=== PATIENT | female | born 1960 | race African-American/Black ===

== ENCOUNTER 2018-07-06 00:22 | Inpatient (IN) | payer MEDICAID, OTHER ==
[~2018-07-06] VITALS: Ht 175.3 cm; Wt 126.6 kg
[~2018-07-06 00:22] MED LIST: BENAZAPRIL; METFROMIN
[2018-07-06 01:17] LABS: BASOPHILS % 0.7 % (0.0-2.0); EOSINOPHILS % 2.3 % (0.0-5.0); HEMATOCRIT. 40.8 % (36.0-48.0); HEMOGLOBIN. 13.7 g/dL (12.0-16.0); LYMPHOCYTES % 41.7 % (20.0-50.0); MEAN CORPUSCULAR HEMOGLOBIN 32.2 pg (28.0-32.0); MEAN CORPUSCULAR VOLUME 95.6 fL (81.0-99.0); MEAN PLATELET VOLUME 9.2 fl (7.4-10.4); MONOCYTES % 6.6 % (2.0-8.0); NEUTROPHILS % 48.7 % (40.0-76.0); PLATELET 256 x1000/uL (130-400); RED BLOOD CELL COUNT 4.27 mill/uL (4.2-5.4)
[2018-07-06 01:18] LABS: CHLORIDE 100 mEq/L (98-107)
[2018-07-06 01:21] LABS: PROTHROMBIN TIME 9.7 sec (9.1-11.1)
[2018-07-06 01:37] LABS: ETHANOL BLOOD < 10 mg/dL; LDL CHOLESTEROL 96 mg/dL (5-100)
[2018-07-06] MEDS ORDERED: ASPIRIN 81MG TABLET PO ONE (02:00)
[2018-07-06 04:42] LABS: CLARITY URINE CLOUDY (CLEAR); COLOR URINE YELLOW (YELLOW); KETONES URINE NEGATIVE (NEGATIVE); LEUKOCYTE ESTERASE URINE TRACE (NEGATIVE); NITRITE URINE NEGATIVE (NEGATIVE); OCCULT BLOOD URINE NEGATIVE (NEGATIVE); PROTEIN URINE TRACE (NEGATIVE); SPECIFIC GRAVITY URINE 1.024 (1.005-1.030); UROBILINOGEN URINE 0.2 E.U./dL (0.2-1.0)
[2018-07-06 05:14] LABS: *AMPHETAMINES SCREEN URINE NEGATIVE (NEGATIVE); *BARBITURATES SCREEN URINE NEGATIVE (NEGATIVE); *BENZODIAZEPINES SCREEN URINE NEGATIVE (NEGATIVE); *COCAINE SCREEN URINE NEGATIVE (NEGATIVE); CANNABINOID URINE SCREEN NEGATIVE (NEGATIVE); METHADONE URINE SCREEN NEGATIVE (NEGATIVE); OPIATES URINE SCREEN NEGATIVE (NEGATIVE); PHENCYCLIDINE URINE SCREEN NEGATIVE (NEGATIVE)
[2018-07-06] MEDS ORDERED: ACETAMINOPHEN 325MG TABLET PO PRN (13:00)
[2018-07-06] MEDS ORDERED: ONDANSETRON HCL 4MG/2ML INJ IV PRN (13:00)
[2018-07-06] MEDS ORDERED: DEXTROSE 50% WATER 50ML SYRINGE IV PRN (13:00)
[2018-07-06] MEDS ORDERED: LOSARTAN POTASSIUM 50 MG TABLET PO SCH ×2 (13:10→18:30)
[2018-07-06 13:24] VITALS: BP 176/109
[2018-07-06] MEDS: CLOPIDOGREL 75MG TABLET PO SCH (13:59)
[2018-07-06] MEDS ORDERED: HYDR-4135 MT (14:45)
[2018-07-06] MEDS ORDERED: ASPI-1159 MT (14:45)
[2018-07-06] MEDS ORDERED: LOSA100T14 MT (14:45)
[2018-07-06] MEDS ORDERED: INSHUMSS SUBCUT (14:45)
[2018-07-06] MEDS ORDERED: METF500S7 PO (14:45)
[2018-07-06 16:30] VITALS: BP 185/108
[2018-07-06] MEDS: NICOTINE 21MG PATCH TD SCH (17:03)
[2018-07-06] MEDS: BLOOD SUGAR DIAGNOSTIC STRIP TEST SCH ×2 (17:03→21:12)
[2018-07-06] MEDS: INSULIN LISPRO 100 UNITS/ML SUBCUT SCH ×2 (17:04→21:12)
[2018-07-06 20:00] VITALS: BP 170/91
[2018-07-06] MEDS: METOPROLOL TARTRATE 50MG TABLET PO SCH (21:04)
[2018-07-06] MEDS: ATORVASTATIN CALCIUM 10MG TABLET PO SCH (21:04)
[2018-07-06] MEDS: ENOXAPARIN 40MG/0.4ML SYR SUBCUT SCH (21:05)
[2018-07-06] MEDS: INSULIN GLARGINE UD 100 UNITS/ML SYR SUBCUT SCH (21:12)
[2018-07-07] VITALS: BP 141/91
[2018-07-07 04:00] VITALS: BP 138/85
[2018-07-07] MEDS: INSULIN LISPRO 100 UNITS/ML SUBCUT SCH ×4 (06:19→20:53)
[2018-07-07] MEDS: BLOOD SUGAR DIAGNOSTIC STRIP TEST SCH ×4 (06:20→21:00)
[2018-07-07 06:45] LABS: BASOPHILS % 0.5 % (0.0-2.0); EOSINOPHILS % 3.3 % (0.0-5.0); HEMATOCRIT. 39.4 % (36.0-48.0); HEMOGLOBIN. 13.3 g/dL (12.0-16.0); LYMPHOCYTES % 39.4 % (20.0-50.0); MEAN CORPUSCULAR VOLUME 94.9 fL (81.0-99.0); MONOCYTES % 8.6 % (2.0-8.0); NEUTROPHILS % 48.2 % (40.0-76.0); PLATELET 273 x1000/uL (130-400); RED BLOOD CELL COUNT 4.16 mill/uL (4.2-5.4); RED CELL DISTRIBUTION WIDTH 13.2 % (11.6-14.6)
[2018-07-07] MEDS ORDERED: GLIPIZIDE 10MG TABLET PO SCH (07:10)
[2018-07-07 07:24] LABS: CHLORIDE 104 mEq/L (98-107)
[2018-07-07 08:29] VITALS: BP 136/87
[2018-07-07] MEDS: NICOTINE 21MG PATCH TD SCH ×2 (09:00→10:47)
[2018-07-07] MEDS: CLOPIDOGREL 75MG TABLET PO SCH (10:46)
[2018-07-07] MEDS: METOPROLOL TARTRATE 50MG TABLET PO SCH ×2 (10:46→20:53)
[2018-07-07] MEDS: LOSARTAN POTASSIUM 100 MG TABLET PO SCH (10:46)
[2018-07-07] MEDS: ENOXAPARIN 40MG/0.4ML SYR SUBCUT SCH ×2 (10:47→21:26)
[2018-07-07] MEDS: INSULIN GLARGINE UD 100 UNITS/ML SYR SUBCUT SCH ×2 (10:48→21:27)
[2018-07-07 12:00] VITALS: BP 174/105
[2018-07-07] MEDS: METRONIDAZOLE 500MG TABLET PO SCH (12:29)
[2018-07-07] MEDS: GLIPIZIDE 10MG TABLET PO SCH (16:58)
[2018-07-07 20:51] VITALS: BP 151/88
[2018-07-07] MEDS: ATORVASTATIN CALCIUM 10MG TABLET PO SCH (20:53)
[2018-07-08] VITALS: BP 145/79
[2018-07-08] MEDS: METRONIDAZOLE 500MG TABLET PO SCH ×3 (00:24→20:51)
[2018-07-08 04:00] VITALS: BP 146/81
[2018-07-08] MEDS: BLOOD SUGAR DIAGNOSTIC STRIP TEST SCH ×4 (05:47→20:53)
[2018-07-08] MEDS: INSULIN LISPRO 100 UNITS/ML SUBCUT SCH ×4 (06:02→20:53)
[2018-07-08] MEDS: GLIPIZIDE 10MG TABLET PO SCH ×2 (06:10→18:05)
[2018-07-08 07:01] LABS: CHLORIDE 104 mEq/L (98-107)
[2018-07-08 07:02] LABS: BASOPHILS % 0.2 % (0.0-2.0); EOSINOPHILS % 2.9 % (0.0-5.0); HEMATOCRIT. 38.2 % (36.0-48.0); HEMOGLOBIN. 12.8 g/dL (12.0-16.0); LYMPHOCYTES % 39.1 % (20.0-50.0); MEAN CORPUSCULAR HEMOGLOBIN 32.1 pg (28.0-32.0); MEAN CORPUSCULAR VOLUME 95.9 fL (81.0-99.0); MEAN PLATELET VOLUME 9.1 fl (7.4-10.4); MONOCYTES % 8.3 % (2.0-8.0); NEUTROPHILS % 49.5 % (40.0-76.0); PLATELET 267 x1000/uL (130-400); RED BLOOD CELL COUNT 3.98 mill/uL (4.2-5.4); RED CELL DISTRIBUTION WIDTH 13.1 % (11.6-14.6)
[2018-07-08 08:00] VITALS: BP 163/96
[2018-07-08] MEDS: METOPROLOL TARTRATE 50MG TABLET PO SCH ×2 (08:59→20:52)
[2018-07-08] MEDS: LOSARTAN POTASSIUM 100 MG TABLET PO SCH (08:59)
[2018-07-08] MEDS: CLOPIDOGREL 75MG TABLET PO SCH (08:59)
[2018-07-08] MEDS: NICOTINE 21MG PATCH TD SCH ×2 (09:00→09:03)
[2018-07-08] MEDS: ENOXAPARIN 40MG/0.4ML SYR SUBCUT SCH ×2 (09:02→20:52)
[2018-07-08] MEDS: INSULIN GLARGINE UD 100 UNITS/ML SYR SUBCUT SCH ×2 (10:58→21:17)
[2018-07-08 12:00] VITALS: BP 148/100
[2018-07-08 16:00] VITALS: BP 126/72
[2018-07-08 20:00] VITALS: BP 150/82
[2018-07-08] MEDS: ATORVASTATIN CALCIUM 10MG TABLET PO SCH (20:51)
[2018-07-09] VITALS: BP 143/78
[2018-07-09 04:00] VITALS: BP 158/85
[2018-07-09] MEDS: GLIPIZIDE 10MG TABLET PO SCH (06:14)
[2018-07-09] MEDS: INSULIN LISPRO 100 UNITS/ML SUBCUT SCH ×2 (06:14→13:46)
[2018-07-09] MEDS: BLOOD SUGAR DIAGNOSTIC STRIP TEST SCH ×2 (06:14→12:16)
[2018-07-09 08:00] VITALS: BP 152/65
[2018-07-09] MEDS: CLOPIDOGREL 75MG TABLET PO SCH (09:09)
[2018-07-09] MEDS: METOPROLOL TARTRATE 50MG TABLET PO SCH (09:09)
[2018-07-09] MEDS: ENOXAPARIN 40MG/0.4ML SYR SUBCUT SCH (09:09)
[2018-07-09] MEDS: METRONIDAZOLE 500MG TABLET PO SCH (09:09)
[2018-07-09] MEDS: LOSARTAN POTASSIUM 100 MG TABLET PO SCH (09:09)
[2018-07-09] MEDS: INSULIN GLARGINE UD 100 UNITS/ML SYR SUBCUT SCH (09:15)
[2018-07-09 11:12] VITALS: BP 152/65
[2018-07-09 12:37] VITALS: BP 148/83
[2018-07-09 16:42] VITALS: BP 151/73
== END 2018-07-09 17:52 | DRG 45 ==
LOC: ER 00:59 → 8WST 01:51 → ENRESERV 11:09
PROVIDERS: ADMIT Internal Medicine; ATTEND Internal Medicine
PROC: 4A00X4Z Measurement of Central Nervous Electrical Activity, External Approach (ICD-10-PCS; principal; 2018-07-07)
DX: I63.511 Cerebral infarction due to unspecified occlusion or stenosis of right middle cerebral artery (principal); E43 Unspecified severe protein-calorie malnutrition; E11.51 Type 2 diabetes mellitus with diabetic peripheral angiopathy without gangrene; E66.01 Morbid (severe) obesity due to excess calories; R13.10 Dysphagia, unspecified; E11.65 Type 2 diabetes mellitus with hyperglycemia; F17.210 Nicotine dependence, cigarettes, uncomplicated; G81.91 Hemiplegia, unspecified affecting right dominant side; R26.9 Unspecified abnormalities of gait and mobility; E78.5 Hyperlipidemia, unspecified; G81.94 Hemiplegia, unspecified affecting left nondominant side; R47.01 Aphasia; R47.1 Dysarthria and anarthria; E78.00 Pure hypercholesterolemia, unspecified; I11.9 Hypertensive heart disease without heart failure; Z79.84 Long term (current) use of oral hypoglycemic drugs; Z82.49 Family history of ischemic heart disease and other diseases of the circulatory system; Z68.41 Body mass index [BMI] 40.0-44.9, adult; Z83.3 Family history of diabetes mellitus; Z88.8 Allergy status to other drugs, medicaments and biological substances; Z71.6 Tobacco abuse counseling
CPT/HCPCS: 36415; 70551; 71045; 80048; 80061; 80305; 82962; 83036; 83721; 84443; 84484; 92523; 92610; 93005; 93306; 93880; 93970; 97112; 97162; 97166; 97530; 99291; G0482; J1650; J1815; J2405

== ENCOUNTER 2018-11-19 04:18 | Inpatient (IN) | payer MEDICAID ==
[~2018-11-19] VITALS: Ht 167.6 cm; Wt 127.9 kg
[~2018-11-19 04:18] MED LIST changes: +ASPI-1159 MT; -BENAZAPRIL; +HYDR-4135 MT; +INSHUMSS SUBCUT; +LOSA100T14 MT; +METF500S7 PO; -METFROMIN
[2018-11-19 05:13] LABS: BASOPHILS % 1.3 % (0.0-2.0); EOSINOPHILS % 3.7 % (0.0-5.0); HEMATOCRIT. 42.4 % (36.0-48.0); HEMOGLOBIN. 14.1 g/dL (12.0-16.0); LYMPHOCYTES % 34.8 % (20.0-50.0); MEAN CORPUSCULAR HEMOGLOBIN 30.8 pg (28.0-32.0); MEAN CORPUSCULAR VOLUME 92.9 fL (81.0-99.0); MEAN PLATELET VOLUME 8.6 fl (7.4-10.4); MONOCYTES % 6.4 % (2.0-8.0); NEUTROPHILS % 53.8 % (40.0-76.0); PLATELET 291 x1000/uL (130-400); RED BLOOD CELL COUNT 4.56 mill/uL (4.2-5.4); RED CELL DISTRIBUTION WIDTH 14.1 % (11.6-14.6)
[2018-11-19 05:17] LABS: CHLORIDE 97 mEq/L (98-107)
[2018-11-19 05:20] LABS: PARTIAL THROMBOPLASTIN TIME 27.1 sec (23.4-31.0); PROTHROMBIN TIME 9.9 sec (9.1-11.1)
[2018-11-19] MEDS ORDERED: ENALAPRIL 2.5MG/2ML VIAL 2ML IV ONE (06:30)
[2018-11-19] MEDS ORDERED: MAGNESIUM 1 G PREMIX 100 ML IV ONE (07:00)
[2018-11-19] MEDS ORDERED: INSULIN REGULAR (HUMULIN R) 300UNITS/3ML IV ONE (07:00)
[2018-11-19] MEDS ORDERED: ASPIRIN 81MG TABLET PO ONE (07:00)
[2018-11-19] MEDS ORDERED: FUROSEMIDE 20MG/2ML VIAL IVP ONE (07:00)
[2018-11-19] MEDS ORDERED: ONDANSETRON HCL 4MG/2ML INJ IV PRN (14:45)
[2018-11-19] MEDS ORDERED: LORAZEPAM 0.5MG TABLET PO PRN (14:45)
[2018-11-19] MEDS ORDERED: ACETAMINOPHEN 325MG TABLET PO PRN (14:45)
[2018-11-19] MEDS ORDERED: LABETALOL 5MG/ML SYR 20 MG/4 ML SYRINGE IV NR (14:45)
[2018-11-19] MEDS ORDERED: HYDROCODONE/ACETAMINOPHEN 5/325MG TABLET PO PRN (14:45)
[2018-11-19] MEDS ORDERED: IPRATROPIUM/ALBUTEROL 0.5-3(2.5)MG/3ML NEB INH PRN (14:45)
[2018-11-19 17:30] LABS: BETA HYDROXYBUTYRATE 0.2 mMol/L (0.0-0.3)
[2018-11-19] MEDS ORDERED: LOSARTAN POTASSIUM 50 MG TABLET PO NR (18:15)
[2018-11-19 22:00] VITALS: BP 152/93
[2018-11-19] MEDS ORDERED: DEXTROSE 50% WATER 50ML SYRINGE IV PRN ×2 (23:15)
[2018-11-19] MEDS ORDERED: BLOOD SUGAR DIAGNOSTIC STRIP TEST SCH (23:30)
[2018-11-19] MEDS: LOSARTAN POTASSIUM 50 MG TABLET PO SCH (23:35)
[2018-11-19] MEDS: HYDRALAZINE HCL 50MG TABLET PO SCH (23:35)
[2018-11-20] VITALS (11 sets, daily range): BP systolic 128–174; BP diastolic 71–96
[2018-11-20] MEDS: INSULIN GLARGINE UD 100 UNITS/ML SYR SUBCUT SCH ×2 (00:35→09:09)
[2018-11-20] MEDS ORDERED: INSULIN LISPRO 100 UNITS/ML SUBCUT SCH (01:13)
[2018-11-20] MEDS ORDERED: DEXTROSE 50% WATER 50ML SYRINGE IV PRN (05:30)
[2018-11-20] MEDS: HYDRALAZINE HCL 50MG TABLET PO SCH ×3 (06:14→21:11)
[2018-11-20] MEDS: BLOOD SUGAR DIAGNOSTIC STRIP TEST SCH ×4 (06:15→20:43)
[2018-11-20 06:41] LABS: BASOPHILS % 0.7 % (0.0-2.0); EOSINOPHILS % 3.3 % (0.0-5.0); HEMATOCRIT. 39.6 % (36.0-48.0); LYMPHOCYTES % 31.5 % (20.0-50.0); MEAN CORPUSCULAR HEMOGLOBIN 30.6 pg (28.0-32.0); MEAN CORPUSCULAR VOLUME 92.8 fL (81.0-99.0); MEAN PLATELET VOLUME 8.6 fl (7.4-10.4); MONOCYTES % 8.1 % (2.0-8.0); NEUTROPHILS % 56.4 % (40.0-76.0); PLATELET 303 x1000/uL (130-400); RED BLOOD CELL COUNT 4.26 mill/uL (4.2-5.4); RED CELL DISTRIBUTION WIDTH 14.2 % (11.6-14.6)
[2018-11-20 07:02] LABS: CHLORIDE 101 mEq/L (98-107)
[2018-11-20] MEDS: INSULIN LISPRO 100 UNITS/ML SUBCUT SCH ×4 (07:20→21:18)
[2018-11-20] MEDS: LOSARTAN POTASSIUM 50 MG TABLET PO SCH ×2 (09:08→21:09)
[2018-11-20] MEDS: ASPIRIN 81MG TABLET PO SCH (09:09)
[2018-11-20] MEDS: DILTIAZEM HCL 30MG TABLET PO SCH ×3 (12:00→23:26)
[2018-11-20] MEDS: NYSTATIN POWDER 15GM TOP SCH (18:23)
[2018-11-20] MEDS: ATORVASTATIN CALCIUM 40MG TABLET PO SCH (21:00)
[2018-11-20] MEDS ORDERED: ATORVASTATIN CALCIUM 40MG TABLET PO SCH (21:00)
[2018-11-20] MEDS ORDERED: INSULIN GLARGINE UD 100 UNITS/ML SYR SUBCUT SCH (22:00)
[2018-11-21] VITALS (12 sets, daily range): BP systolic 136–182; BP diastolic 78–113
[2018-11-21] MEDS: HYDRALAZINE HCL 50MG TABLET PO SCH ×3 (05:14→21:43)
[2018-11-21] MEDS: DILTIAZEM HCL 30MG TABLET PO SCH (05:14)
[2018-11-21] MEDS: BLOOD SUGAR DIAGNOSTIC STRIP TEST SCH ×4 (06:34→20:10)
[2018-11-21 06:44] LABS: BASOPHILS % 0.5 % (0.0-2.0); EOSINOPHILS % 3.6 % (0.0-5.0); HEMATOCRIT. 37.5 % (36.0-48.0); HEMOGLOBIN. 12.4 g/dL (12.0-16.0); LYMPHOCYTES % 36.1 % (20.0-50.0); MEAN CORPUSCULAR HEMOGLOBIN 30.7 pg (28.0-32.0); MEAN CORPUSCULAR VOLUME 93.2 fL (81.0-99.0); MEAN PLATELET VOLUME 8.5 fl (7.4-10.4); MONOCYTES % 7.2 % (2.0-8.0); NEUTROPHILS % 52.6 % (40.0-76.0); PLATELET 281 x1000/uL (130-400); RED BLOOD CELL COUNT 4.03 mill/uL (4.2-5.4); RED CELL DISTRIBUTION WIDTH 14.4 % (11.6-14.6)
[2018-11-21] MEDS: INSULIN LISPRO 100 UNITS/ML SUBCUT SCH ×6 (07:20→20:18)
[2018-11-21] MEDS: LOSARTAN POTASSIUM 50 MG TABLET PO SCH ×2 (08:50→20:15)
[2018-11-21] MEDS: ASPIRIN 81MG TABLET PO SCH (08:50)
[2018-11-21] MEDS: DOCUSATE SODIUM 100MG CAPSULE PO PRN (08:57)
[2018-11-21] MEDS: NYSTATIN POWDER 15GM TOP SCH ×3 (08:57→17:34)
[2018-11-21 09:04] LABS: CHLORIDE 103 mEq/L (98-107)
[2018-11-21] MEDS: INSULIN GLARGINE UD 100 UNITS/ML SYR SUBCUT SCH ×2 (10:33→21:45)
[2018-11-21] MEDS: DILTIAZEM HCL 60MG TABLET PO SCH ×2 (12:29→17:31)
[2018-11-21] MEDS: ATORVASTATIN CALCIUM 40MG TABLET PO SCH (20:18)
[2018-11-22] VITALS (11 sets, daily range): BP systolic 133–167; BP diastolic 73–99
[2018-11-22] MEDS: DILTIAZEM HCL 60MG TABLET PO SCH ×2 (00:15→06:02)
[2018-11-22] MEDS: HYDRALAZINE HCL 50MG TABLET PO SCH ×2 (06:02→14:30)
[2018-11-22] MEDS: BLOOD SUGAR DIAGNOSTIC STRIP TEST SCH ×4 (07:03→20:14)
[2018-11-22 07:05] LABS: BASOPHILS % 0.6 % (0.0-2.0); EOSINOPHILS % 4.1 % (0.0-5.0); HEMATOCRIT. 37.7 % (36.0-48.0); HEMOGLOBIN. 12.4 g/dL (12.0-16.0); LYMPHOCYTES % 37.7 % (20.0-50.0); MEAN CORPUSCULAR HEMOGLOBIN 30.8 pg (28.0-32.0); MEAN CORPUSCULAR VOLUME 93.7 fL (81.0-99.0); MEAN PLATELET VOLUME 8.7 fl (7.4-10.4); MONOCYTES % 6.7 % (2.0-8.0); NEUTROPHILS % 50.9 % (40.0-76.0); PLATELET 283 x1000/uL (130-400); RED BLOOD CELL COUNT 4.02 mill/uL (4.2-5.4); RED CELL DISTRIBUTION WIDTH 14.4 % (11.6-14.6)
[2018-11-22 08:33] LABS: CHLORIDE 105 mEq/L (98-107)
[2018-11-22] MEDS: ASPIRIN 81MG TABLET PO SCH (08:54)
[2018-11-22] MEDS: DOCUSATE SODIUM 100MG CAPSULE PO PRN (08:54)
[2018-11-22] MEDS: LOSARTAN POTASSIUM 50 MG TABLET PO SCH ×2 (08:55→20:25)
[2018-11-22] MEDS: INSULIN LISPRO 100 UNITS/ML SUBCUT SCH ×6 (08:58→20:22)
[2018-11-22] MEDS: INSULIN GLARGINE UD 100 UNITS/ML SYR SUBCUT SCH ×2 (10:49→22:51)
[2018-11-22] MEDS: NYSTATIN POWDER 15GM TOP SCH (13:00)
[2018-11-22] MEDS: DILTIAZEM HCL 90MG TABLET PO SCH ×2 (13:45→18:23)
[2018-11-22] MEDS: ATORVASTATIN CALCIUM 40MG TABLET PO SCH (20:24)
[2018-11-22] MEDS: HYDRALAZINE HCL 100MG TABLET PO SCH (22:49)
[2018-11-23] VITALS (20 sets, daily range): BP systolic 119–167; BP diastolic 65–97
[2018-11-23] MEDS: DILTIAZEM HCL 90MG TABLET PO SCH ×4 (00:09→17:34)
[2018-11-23] MEDS: HYDRALAZINE HCL 100MG TABLET PO SCH ×3 (06:29→22:05)
[2018-11-23 06:36] LABS: BASOPHILS % 0.7 % (0.0-2.0); EOSINOPHILS % 4.2 % (0.0-5.0); HEMATOCRIT. 36.6 % (36.0-48.0); HEMOGLOBIN. 12.1 g/dL (12.0-16.0); LYMPHOCYTES % 35.7 % (20.0-50.0); MEAN CORPUSCULAR HEMOGLOBIN 30.9 pg (28.0-32.0); MEAN CORPUSCULAR VOLUME 93.5 fL (81.0-99.0); MEAN PLATELET VOLUME 8.3 fl (7.4-10.4); MONOCYTES % 6.5 % (2.0-8.0); NEUTROPHILS % 52.9 % (40.0-76.0); PLATELET 279 x1000/uL (130-400); RED BLOOD CELL COUNT 3.91 mill/uL (4.2-5.4); RED CELL DISTRIBUTION WIDTH 14.1 % (11.6-14.6)
[2018-11-23] MEDS: BLOOD SUGAR DIAGNOSTIC STRIP TEST SCH ×4 (06:50→20:29)
[2018-11-23 07:13] LABS: CHLORIDE 105 mEq/L (98-107)
[2018-11-23] MEDS: INSULIN LISPRO 100 UNITS/ML SUBCUT SCH ×7 (07:58→22:06)
[2018-11-23] MEDS: ASPIRIN 81MG TABLET PO SCH (08:14)
[2018-11-23] MEDS: LOSARTAN POTASSIUM 50 MG TABLET PO SCH ×2 (08:14→20:28)
[2018-11-23] MEDS: NYSTATIN POWDER 15GM TOP SCH ×3 (08:16→17:32)
[2018-11-23] MEDS: INSULIN GLARGINE UD 100 UNITS/ML SYR SUBCUT SCH ×2 (11:56→22:07)
[2018-11-23] MEDS: DOCUSATE SODIUM 100MG CAPSULE PO PRN (17:34)
[2018-11-23] MEDS: ATORVASTATIN CALCIUM 40MG TABLET PO SCH (20:29)
[2018-11-23] MEDS: NYSTATIN 100,000 UNITS/GM CREAM 15GM TOP SCH (20:32)
[2018-11-24] VITALS (22 sets, daily range): BP systolic 116–166; BP diastolic 38–98
[2018-11-24] MEDS: DILTIAZEM HCL 90MG TABLET PO SCH ×4 (00:55→17:27)
[2018-11-24] MEDS: HYDRALAZINE HCL 100MG TABLET PO SCH ×3 (06:34→20:59)
[2018-11-24] MEDS: BLOOD SUGAR DIAGNOSTIC STRIP TEST SCH ×4 (06:59→21:26)
[2018-11-24 07:03] LABS: BASOPHILS % 0.4 % (0.0-2.0); EOSINOPHILS % 3.5 % (0.0-5.0); HEMATOCRIT. 36.2 % (36.0-48.0); HEMOGLOBIN. 11.9 g/dL (12.0-16.0); LYMPHOCYTES % 35.6 % (20.0-50.0); MEAN CORPUSCULAR HEMOGLOBIN 30.9 pg (28.0-32.0); MEAN CORPUSCULAR VOLUME 93.8 fL (81.0-99.0); MEAN PLATELET VOLUME 8.7 fl (7.4-10.4); MONOCYTES % 6.9 % (2.0-8.0); NEUTROPHILS % 53.6 % (40.0-76.0); PLATELET 295 x1000/uL (130-400); RED BLOOD CELL COUNT 3.86 mill/uL (4.2-5.4); RED CELL DISTRIBUTION WIDTH 14.3 % (11.6-14.6)
[2018-11-24 07:13] LABS: CHLORIDE 107 mEq/L (98-107)
[2018-11-24] MEDS: INSULIN LISPRO 100 UNITS/ML SUBCUT SCH ×7 (07:23→21:00)
[2018-11-24] MEDS: ASPIRIN 81MG TABLET PO SCH (07:27)
[2018-11-24] MEDS: LOSARTAN POTASSIUM 50 MG TABLET PO SCH ×2 (07:27→20:59)
[2018-11-24] MEDS: NYSTATIN POWDER 15GM TOP SCH ×3 (11:21→17:29)
[2018-11-24] MEDS: NYSTATIN 100,000 UNITS/GM CREAM 15GM TOP SCH ×2 (11:22→21:26)
[2018-11-24] MEDS: INSULIN GLARGINE UD 100 UNITS/ML SYR SUBCUT SCH ×2 (11:23→21:28)
[2018-11-24] MEDS: ATORVASTATIN CALCIUM 40MG TABLET PO SCH (21:00)
[2018-11-25] VITALS (14 sets, daily range): BP systolic 148–179; BP diastolic 54–99
[2018-11-25] MEDS: DILTIAZEM HCL 90MG TABLET PO SCH ×3 (06:41→11:09)
[2018-11-25] MEDS: BLOOD SUGAR DIAGNOSTIC STRIP TEST SCH ×2 (06:43→11:03)
[2018-11-25] MEDS: INSULIN LISPRO 100 UNITS/ML SUBCUT SCH ×4 (06:43→11:07)
[2018-11-25] MEDS: HYDRALAZINE HCL 100MG TABLET PO SCH ×2 (06:43→14:10)
[2018-11-25] MEDS: ASPIRIN 81MG TABLET PO SCH (08:18)
[2018-11-25] MEDS: LOSARTAN POTASSIUM 50 MG TABLET PO SCH (08:18)
[2018-11-25] MEDS: NYSTATIN POWDER 15GM TOP SCH ×2 (08:19→14:10)
[2018-11-25] MEDS: NYSTATIN 100,000 UNITS/GM CREAM 15GM TOP SCH (08:19)
[2018-11-25] MEDS: INSULIN GLARGINE UD 100 UNITS/ML SYR SUBCUT SCH (11:09)
== END 2018-11-25 14:41 | DRG 199 ==
LOC: ER 04:18 → 3WST 06:41 → EDBEDREQ 06:42 → CANRESERV 07:46 → ENRESERV 07:46 → EDBEDREQSVC 08:14 → ENRESERV 20:35
PROVIDERS: ADMIT Internal Medicine; ATTEND Internal Medicine
DX: I16.0 Hypertensive urgency (principal); E43 Unspecified severe protein-calorie malnutrition; E11.65 Type 2 diabetes mellitus with hyperglycemia; J44.9 Chronic obstructive pulmonary disease, unspecified; E78.5 Hyperlipidemia, unspecified; F17.200 Nicotine dependence, unspecified, uncomplicated; E78.00 Pure hypercholesterolemia, unspecified; E66.01 Morbid (severe) obesity due to excess calories; I10 Essential (primary) hypertension; R32 Unspecified urinary incontinence; Z74.01 Bed confinement status; Z88.9 Allergy status to unspecified drugs, medicaments and biological substances; I69.351 Hemiplegia and hemiparesis following cerebral infarction affecting right dominant side; I69.354 Hemiplegia and hemiparesis following cerebral infarction affecting left non-dominant side; Z68.42 Body mass index [BMI] 45.0-49.9, adult; Z79.84 Long term (current) use of oral hypoglycemic drugs
CPT/HCPCS: 36415; 70551; 71045; 80048; 80061; 82010; 82962; 83036; 83735; 83880; 84100; 84134; 84443; 84484; 93005; 93306; 93971; 96365; 96375; 97110; 97112; 97163; 97166; 97530; 99291; A6261; J1815; J1940; J3475; J3490; J7050

== ENCOUNTER 2019-03-16 04:15 | Inpatient (IN) | payer MEDICAID ==
[~2019-03-16] VITALS: Ht 177.8 cm; Wt 127.3 kg
[~2019-03-16 04:15] MED LIST changes: -ASPI-1159 MT; +ASPI-1393 MT; -LOSA100T14 MT; +LOSA100T32 MT
[2019-03-16] MEDS ORDERED: SODIUM CHLORIDE 0.9% 1,000 ML IV ONE (04:39)
[2019-03-16 05:13] LABS: CLARITY URINE TURBID (CLEAR); COLOR URINE YELLOW (YELLOW); KETONES URINE TRACE (NEGATIVE); LEUKOCYTE ESTERASE URINE 3+ (NEGATIVE); NITRITE URINE NEGATIVE (NEGATIVE); OCCULT BLOOD URINE TRACE (NEGATIVE); PH URINE 5.5 (4.5-8.0); PROTEIN URINE 2+ (NEGATIVE); SPECIFIC GRAVITY URINE 1.018 (1.005-1.030); UROBILINOGEN URINE 0.2 E.U./dL (0.2-1.0)
[2019-03-16 05:20] LABS: BASOPHILS % 0.2 % (0.0-2.0); EOSINOPHILS % 0.4 % (0.0-5.0); HEMATOCRIT. 44.5 % (36.0-48.0); HEMOGLOBIN. 14.8 g/dL (12.0-16.0); LYMPHOCYTES % 17.3 % (20.0-50.0); MEAN CORPUSCULAR HEMOGLOBIN 31.2 pg (28.0-32.0); MEAN CORPUSCULAR VOLUME 93.7 fL (81.0-99.0); MEAN PLATELET VOLUME 7.7 fl (7.4-10.4); NEUTROPHILS % 76.1 % (40.0-76.0); PLATELET 297 x1000/uL (130-400); RED BLOOD CELL COUNT 4.75 mill/uL (4.2-5.4); RED CELL DISTRIBUTION WIDTH 13.8 % (11.6-14.6)
[2019-03-16 05:24] LABS: CHLORIDE 107 mEq/L (98-107)
[2019-03-16 05:28] LABS: ETHANOL BLOOD < 10 mg/dL
[2019-03-16 05:31] LABS: *AMPHETAMINES SCREEN URINE NEGATIVE (NEGATIVE); *BARBITURATES SCREEN URINE NEGATIVE (NEGATIVE); *BENZODIAZEPINES SCREEN URINE NEGATIVE (NEGATIVE); *COCAINE SCREEN URINE NEGATIVE (NEGATIVE); METHADONE URINE SCREEN NEGATIVE (NEGATIVE); OPIATES URINE SCREEN NEGATIVE (NEGATIVE)
[2019-03-16 05:32] LABS: CANNABINOID URINE SCREEN NEGATIVE (NEGATIVE); PHENCYCLIDINE URINE SCREEN NEGATIVE (NEGATIVE)
[2019-03-16] MEDS ORDERED: CEFTRIAXONE 1 G PREMIX 50 ML IV ONE (05:45)
[2019-03-16 09:50] VITALS: BP 143/93
[2019-03-16 10:00] VITALS: BP 160/93
[2019-03-16] MEDS ORDERED: ONDANSETRON HCL 4MG/2ML INJ IV PRN (11:00)
[2019-03-16] MEDS ORDERED: ACETAMINOPHEN 325MG TABLET PO PRN (11:00)
[2019-03-16] MEDS ORDERED: DEXTROSE 50% WATER 50ML SYRINGE IV PRN (11:00)
[2019-03-16 12:00] VITALS: BP 144/91
[2019-03-16] MEDS: BLOOD SUGAR DIAGNOSTIC STRIP TEST SCH ×3 (12:20→20:55)
[2019-03-16] MEDS: INSULIN LISPRO 100 UNITS/ML SUBCUT SCH ×3 (12:50→20:53)
[2019-03-16] MEDS: SODIUM CHLORIDE 0.9% 1,000 ML IV SCH (13:28)
[2019-03-16] MEDS: ENOXAPARIN 30MG/0.3ML SYR SUBCUT SCH ×2 (13:30→20:55)
[2019-03-16 16:08] VITALS: BP 142/84
[2019-03-16] MEDS: CLOPIDOGREL 75MG TABLET PO SCH (16:20)
[2019-03-16 20:00] VITALS: BP 150/89
[2019-03-16] MEDS: ATORVASTATIN CALCIUM 40MG TABLET PO SCH (20:55)
[2019-03-17] VITALS: BP 171/94
[2019-03-17] MEDS: SODIUM CHLORIDE 0.9% 1,000 ML IV SCH ×3 (01:39→21:00)
[2019-03-17 04:00] VITALS: BP 167/89
[2019-03-17] MEDS: CEFTRIAXONE 1 G PREMIX 50 ML IV SCH (05:17)
[2019-03-17] MEDS: HYDRALAZINE 20MG/ML VIAL IV PRN (05:18)
[2019-03-17 06:47] LABS: BASOPHILS % 0.1 % (0.0-2.0); EOSINOPHILS % 4.7 % (0.0-5.0); HEMATOCRIT. 38.3 % (36.0-48.0); HEMOGLOBIN. 12.6 g/dL (12.0-16.0); LYMPHOCYTES % 35.6 % (20.0-50.0); MEAN CORPUSCULAR HEMOGLOBIN 31.2 pg (28.0-32.0); MEAN CORPUSCULAR VOLUME 94.7 fL (81.0-99.0); MONOCYTES % 5.6 % (2.0-8.0); PLATELET 282 x1000/uL (130-400); RED BLOOD CELL COUNT 4.05 mill/uL (4.2-5.4)
[2019-03-17] MEDS: BLOOD SUGAR DIAGNOSTIC STRIP TEST SCH ×4 (06:47→20:46)
[2019-03-17 06:57] LABS: CHLORIDE 111 mEq/L (98-107)
[2019-03-17] MEDS: INSULIN LISPRO 100 UNITS/ML SUBCUT SCH ×4 (08:12→20:46)
[2019-03-17] MEDS: ENOXAPARIN 30MG/0.3ML SYR SUBCUT SCH ×2 (08:13→20:34)
[2019-03-17] MEDS: CLOPIDOGREL 75MG TABLET PO SCH (08:13)
[2019-03-17 08:25] VITALS: BP 181/87
[2019-03-17 11:49] VITALS: BP 160/90
[2019-03-17] MEDS: LOSARTAN POTASSIUM 100 MG TABLET PO SCH (12:10)
[2019-03-17 16:06] VITALS: BP 160/93
[2019-03-17 20:00] VITALS: BP 150/88
[2019-03-17] MEDS: ATORVASTATIN CALCIUM 40MG TABLET PO SCH ×2 (20:33→21:00)
[2019-03-18] VITALS: BP 152/90
[2019-03-18 04:00] VITALS: BP 185/96
[2019-03-18] MEDS: HYDRALAZINE 20MG/ML VIAL IV PRN (05:23)
[2019-03-18] MEDS: CEFTRIAXONE 1 G PREMIX 50 ML IV SCH (05:24)
[2019-03-18] MEDS: BLOOD SUGAR DIAGNOSTIC STRIP TEST SCH ×4 (06:32→21:00)
[2019-03-18] MEDS: INSULIN LISPRO 100 UNITS/ML SUBCUT SCH ×4 (06:34→21:00)
[2019-03-18 08:33] VITALS: BP 157/85
[2019-03-18] MEDS: CLOPIDOGREL 75MG TABLET PO SCH (08:35)
[2019-03-18] MEDS: LOSARTAN POTASSIUM 100 MG TABLET PO SCH (08:35)
[2019-03-18] MEDS: ENOXAPARIN 30MG/0.3ML SYR SUBCUT SCH ×2 (08:38→22:26)
[2019-03-18] MEDS: SODIUM CHLORIDE 0.9% 1,000 ML IV SCH (12:05)
[2019-03-18 12:23] VITALS: BP 163/80
[2019-03-18 15:57] VITALS: BP 178/97
[2019-03-18] MEDS: HYDRALAZINE HCL 50MG TABLET PO SCH (22:26)
[2019-03-18] MEDS: ATORVASTATIN CALCIUM 40MG TABLET PO SCH (22:26)
[2019-03-19 00:17] VITALS: BP 179/98
[2019-03-19 04:00] VITALS: BP 196/100
[2019-03-19] MEDS: CEFTRIAXONE 1 G PREMIX 50 ML IV SCH (05:26)
[2019-03-19] MEDS: INSULIN LISPRO 100 UNITS/ML SUBCUT SCH ×4 (05:54→20:53)
[2019-03-19] MEDS: BLOOD SUGAR DIAGNOSTIC STRIP TEST SCH ×4 (05:54→20:54)
[2019-03-19] MEDS: SODIUM CHLORIDE 0.9% 1,000 ML IV SCH ×2 (05:55→17:29)
[2019-03-19] MEDS: CLOPIDOGREL 75MG TABLET PO SCH (08:19)
[2019-03-19] MEDS: LOSARTAN POTASSIUM 100 MG TABLET PO SCH (08:19)
[2019-03-19] MEDS: ENOXAPARIN 30MG/0.3ML SYR SUBCUT SCH ×2 (08:20→20:53)
[2019-03-19] MEDS: HYDRALAZINE HCL 50MG TABLET PO SCH (08:20)
[2019-03-19 12:31] VITALS: BP 169/84
[2019-03-19 16:04] VITALS: BP 167/88
[2019-03-19] MEDS: HYDRALAZINE HCL 100MG TABLET PO SCH (17:22)
[2019-03-19 20:22] VITALS: BP 178/94
[2019-03-19] MEDS: HYDRALAZINE 20MG/ML VIAL IV PRN (20:52)
[2019-03-19] MEDS: ATORVASTATIN CALCIUM 40MG TABLET PO SCH (20:53)
[2019-03-19] MEDS: MINOXIDIL 2.5MG TABLET PO SCH (20:53)
[2019-03-20] VITALS (7 sets, daily range): BP systolic 123–183; BP diastolic 69–99
[2019-03-20] MEDS: HYDRALAZINE 20MG/ML VIAL IV PRN (05:27)
[2019-03-20] MEDS: CEFTRIAXONE 1 G PREMIX 50 ML IV SCH (05:28)
[2019-03-20] MEDS: HYDRALAZINE HCL 100MG TABLET PO SCH ×3 (05:28→22:10)
[2019-03-20] MEDS: INSULIN LISPRO 100 UNITS/ML SUBCUT SCH ×4 (06:25→20:49)
[2019-03-20] MEDS: BLOOD SUGAR DIAGNOSTIC STRIP TEST SCH ×4 (06:25→20:49)
[2019-03-20] MEDS: ENOXAPARIN 30MG/0.3ML SYR SUBCUT SCH ×2 (09:15→20:47)
[2019-03-20] MEDS: MINOXIDIL 2.5MG TABLET PO SCH ×2 (09:16→20:48)
[2019-03-20] MEDS: LOSARTAN POTASSIUM 100 MG TABLET PO SCH (09:16)
[2019-03-20] MEDS: CLOPIDOGREL 75MG TABLET PO SCH (09:16)
[2019-03-20] MEDS: SODIUM CHLORIDE 0.9% 1,000 ML IV SCH ×2 (09:21→22:09)
[2019-03-20] MEDS: ATORVASTATIN CALCIUM 40MG TABLET PO SCH (20:49)
[2019-03-21] VITALS (7 sets, daily range): BP systolic 112–181; BP diastolic 59–97
[2019-03-21] MEDS: HYDRALAZINE 20MG/ML VIAL IV PRN (00:40)
[2019-03-21] MEDS: HYDRALAZINE HCL 100MG TABLET PO SCH ×2 (05:59→14:00)
[2019-03-21] MEDS: CEFTRIAXONE 1 G PREMIX 50 ML IV SCH (05:59)
[2019-03-21] MEDS: BLOOD SUGAR DIAGNOSTIC STRIP TEST SCH ×4 (05:59→21:22)
[2019-03-21] MEDS: CLOPIDOGREL 75MG TABLET PO SCH (08:36)
[2019-03-21] MEDS: LOSARTAN POTASSIUM 100 MG TABLET PO SCH (08:36)
[2019-03-21] MEDS: ENOXAPARIN 30MG/0.3ML SYR SUBCUT SCH ×2 (08:37→21:21)
[2019-03-21] MEDS: INSULIN LISPRO 100 UNITS/ML SUBCUT SCH ×4 (08:46→21:18)
[2019-03-21] MEDS: MINOXIDIL 2.5MG TABLET PO SCH ×2 (09:00→21:21)
[2019-03-21] MEDS: SODIUM CHLORIDE 0.9% 1,000 ML IV SCH (14:00)
[2019-03-21] MEDS: ATORVASTATIN CALCIUM 40MG TABLET PO SCH (21:00)
[2019-03-21] MEDS: METOPROLOL TARTRATE 50MG TABLET PO SCH (21:21)
[2019-03-21] MEDS: HYDRALAZINE HCL 25MG TABLET PO SCH (21:22)
[2019-03-22] VITALS (8 sets, daily range): BP systolic 96–154; BP diastolic 39–72
[2019-03-22] MEDS: HYDRALAZINE HCL 25MG TABLET PO SCH ×2 (06:00→13:18)
[2019-03-22 06:23] LABS: BASOPHILS % 0.5 % (0.0-2.0); EOSINOPHILS % 4.3 % (0.0-5.0); HEMATOCRIT. 38.8 % (36.0-48.0); HEMOGLOBIN. 12.9 g/dL (12.0-16.0); MEAN CORPUSCULAR HEMOGLOBIN 31.4 pg (28.0-32.0); MEAN CORPUSCULAR VOLUME 94.7 fL (81.0-99.0); MONOCYTES % 7.7 % (2.0-8.0); NEUTROPHILS % 47.5 % (40.0-76.0); PLATELET 310 x1000/uL (130-400); RED CELL DISTRIBUTION WIDTH 13.7 % (11.6-14.6)
[2019-03-22] MEDS: BLOOD SUGAR DIAGNOSTIC STRIP TEST SCH ×2 (06:32→12:46)
[2019-03-22] MEDS: MINOXIDIL 2.5MG TABLET PO SCH (08:50)
[2019-03-22] MEDS: METOPROLOL TARTRATE 50MG TABLET PO SCH (08:50)
[2019-03-22] MEDS: CLOPIDOGREL 75MG TABLET PO SCH (08:51)
[2019-03-22] MEDS: ENOXAPARIN 30MG/0.3ML SYR SUBCUT SCH (08:51)
[2019-03-22] MEDS: LOSARTAN POTASSIUM 100 MG TABLET PO SCH (08:51)
[2019-03-22 08:56] LABS: CHLORIDE 110 mEq/L (98-107)
[2019-03-22] MEDS: INSULIN LISPRO 100 UNITS/ML SUBCUT SCH ×2 (08:59→12:48)
== END 2019-03-22 17:15 | DRG 720 ==
LOC: ER 04:15 → 6WST 05:40 → ENRESERV 07:00 → 6WST 03-21 10:51
PROVIDERS: ADMIT Internal Medicine; ATTEND Internal Medicine
DX: A41.9 Sepsis, unspecified organism (principal); E44.0 Moderate protein-calorie malnutrition; E66.01 Morbid (severe) obesity due to excess calories; G90.8 Other disorders of autonomic nervous system; I69.354 Hemiplegia and hemiparesis following cerebral infarction affecting left non-dominant side; N39.0 Urinary tract infection, site not specified; E11.9 Type 2 diabetes mellitus without complications; E78.5 Hyperlipidemia, unspecified; I10 Essential (primary) hypertension; F17.210 Nicotine dependence, cigarettes, uncomplicated; G89.29 Other chronic pain; Z88.8 Allergy status to other drugs, medicaments and biological substances; Z79.82 Long term (current) use of aspirin; Z79.84 Long term (current) use of oral hypoglycemic drugs; Z79.899 Other long term (current) drug therapy; Z68.41 Body mass index [BMI] 40.0-44.9, adult
CPT/HCPCS: 36415; 71045; 73030; 80048; 80305; 80320; 82140; 82962; 84484; 87077; 87186; 96365; 97162; 97530; 99285; J0360; J0696; J1650; J1815; J7030; G0480

== ENCOUNTER 2020-01-03 16:29 | Emergency (ER) | payer MEDICAID, OTHER ==
[~2020-01-03] VITALS: Ht 172.7 cm; Wt 113.0 kg
[~2020-01-03 16:29] MED LIST changes: -ASPI-1393 MT; -HYDR-4135 MT; -METF500S7 PO
[2020-01-03 17:30] VITALS: BP 172/108
== END 2020-01-03 17:30 | disposition left against medical advice (07) ==
LOC: ER 16:29
DX: M79.602 Pain in left arm (principal); I10 Essential (primary) hypertension; E11.9 Type 2 diabetes mellitus without complications; Z88.8 Allergy status to other drugs, medicaments and biological substances; Z79.899 Other long term (current) drug therapy; Z79.4 Long term (current) use of insulin
CPT/HCPCS: 71045; 93005; 99283

== ENCOUNTER 2020-03-30 10:13 | Inpatient (IN) | payer MEDICAID, OTHER ==
[~2020-03-30] VITALS: Ht 162.6 cm; Wt 131.7 kg
[2020-03-30] MEDS ORDERED: SODIUM CHLORIDE 0.9% 1,000 ML IV ONE (10:49)
[2020-03-30] MEDS ORDERED: INSULIN REGULAR (HUMULIN R) UD 100 UNITS/ML SYR SUBCUT ONE (11:00)
[2020-03-30 11:18] LABS: BG CARBOXYHEMOGLOBIN 3.2 % (0.5-1.5); BG DEOXYHEMOGLOBIN 6.7 % (0.0-5.0); BG FRACTION INSPIRED OXYGEN 21; BG HCO3 ACT 29.6 mmol/L (22.0-26.0); BG METHEMOGLOBIN 0.2 % (0.0-1.5); BG OXYGEN SATURATION 93.1 % (92.0-98.5); BG OXYHEMOGLOBIN 89.9 % (94.0-97.0); BG PCO2 43.5 mmHg (35.0-45.0); BG PH 7.451 (7.350-7.450); BG PO2 64.5 mmHg (75.0-100.0); BG SAMPLE SITE RIGHT BRACHIAL; BG TOTAL HEMOGLOBIN 15.5 g/dL (12.0-18.0); BG VENT MODE ROOM AIR
[2020-03-30 11:25] LABS: EOSINOPHILS % 0.6 % (0.0-5.0); HEMATOCRIT. 46.1 % (36.0-48.0); HEMOGLOBIN. 15.4 g/dL (12.0-16.0); LYMPHOCYTES % 21.1 % (20.0-50.0); MEAN CORPUSCULAR HEMOGLOBIN 31.3 pg (28.0-32.0); MEAN CORPUSCULAR VOLUME 93.6 fL (81.0-99.0); MEAN PLATELET VOLUME 8.9 fl (7.4-10.4); MONOCYTES % 3.4 % (2.0-8.0); NEUTROPHILS % 73.9 % (40.0-76.0); PLATELET 324 x1000/uL (130-400); RED BLOOD CELL COUNT 4.93 mill/uL (4.2-5.4); RED CELL DISTRIBUTION WIDTH 13.4 % (11.6-14.6)
[2020-03-30 11:26] LABS: CLARITY URINE CLEAR (CLEAR); COLOR URINE YELLOW (YELLOW); KETONES URINE NEGATIVE (NEGATIVE); LEUKOCYTE ESTERASE URINE NEGATIVE (NEGATIVE); NITRITE URINE NEGATIVE (NEGATIVE); OCCULT BLOOD URINE 1+ (NEGATIVE); PROTEIN URINE 3+ (NEGATIVE); SPECIFIC GRAVITY URINE 1.019 (1.005-1.030); UROBILINOGEN URINE 0.2 E.U./dL (0.2-1.0)
[2020-03-30 11:32] LABS: CHLORIDE 102 mEq/L (98-107)
[2020-03-30 11:39] LABS: BETA HYDROXYBUTYRATE 0.4 mMol/L (0.0-0.3)
[2020-03-30 11:40] LABS: PARTIAL THROMBOPLASTIN TIME 29.3 sec (23.4-31.0); PROTHROMBIN TIME 10.2 sec (9.6-11.0)
[2020-03-30 11:41] LABS: ETHANOL BLOOD < 10 mg/dL
[2020-03-30] MEDS ORDERED: CEFTRIAXONE 1 G PREMIX 50 ML IV ONE (12:15)
[2020-03-30] MEDS ORDERED: AZITHROMYCIN 500 MG in DEXT 5% WATER 250 ML IV ONE (12:15)
[2020-03-30 12:27] LABS: *AMPHETAMINES SCREEN URINE NEGATIVE (NEGATIVE); *BARBITURATES SCREEN URINE NEGATIVE (NEGATIVE); *BENZODIAZEPINES SCREEN URINE NEGATIVE (NEGATIVE); *COCAINE SCREEN URINE NEGATIVE (NEGATIVE); METHADONE URINE SCREEN NEGATIVE (NEGATIVE); OPIATES URINE SCREEN NEGATIVE (NEGATIVE)
[2020-03-30 12:29] LABS: CANNABINOID URINE SCREEN NEGATIVE (NEGATIVE); PHENCYCLIDINE URINE SCREEN NEGATIVE (NEGATIVE)
[2020-03-30] MEDS ORDERED: ASPIRIN 325MG EC TABLET PO ONE (13:15)
[2020-03-30] MEDS ORDERED: DIPHENHYDRAMINE 50MG/ML VIAL IV PRN (14:15)
[2020-03-30] MEDS ORDERED: ACETAMINOPHEN 325MG TABLET PO PRN (14:15)
[2020-03-30] MEDS ORDERED: CEFTRIAXONE 1 G PREMIX 50 ML IV SCH (14:15)
[2020-03-30] MEDS ORDERED: ONDANSETRON HCL 4MG/2ML INJ IV PRN (14:15)
[2020-03-30 14:40] LABS: PHOSPHORUS 3.5 mg/dL (2.5-4.9)
[2020-03-30] MEDS: SODIUM CHLORIDE 0.9% 1,000 ML IV SCH (15:02)
[2020-03-30] MEDS ORDERED: DEXTROSE 50% WATER 50ML SYRINGE IV PRN (15:30)
[2020-03-30] MEDS: BLOOD SUGAR DIAGNOSTIC STRIP TEST SCH ×2 (15:43→18:46)
[2020-03-30] MEDS: INSULIN LISPRO 100 UNITS/ML SUBCUT SCH ×2 (16:39→18:54)
[2020-03-30] MEDS ORDERED: HYDRALAZINE 20MG/ML VIAL IV NR (17:15)
[2020-03-30] MEDS ORDERED: LABETALOL 5MG/ML SYR 20 MG/4 ML SYRINGE IV NR (19:07)
[2020-03-31] MEDS: SODIUM CHLORIDE 0.9% 1,000 ML IV SCH ×2 (00:30→10:30)
[2020-03-31 03:28] LABS: CHLORIDE 105 mEq/L (98-107)
[2020-03-31 03:32] LABS: BASOPHILS % 0.9 % (0.0-2.0); EOSINOPHILS % 0.3 % (0.0-5.0); HEMATOCRIT. 43.6 % (36.0-48.0); HEMOGLOBIN. 14.7 g/dL (12.0-16.0); LYMPHOCYTES % 22.3 % (20.0-50.0); MEAN CORPUSCULAR HEMOGLOBIN 31.5 pg (28.0-32.0); MEAN CORPUSCULAR VOLUME 93.3 fL (81.0-99.0); MEAN PLATELET VOLUME 8.9 fl (7.4-10.4); NEUTROPHILS % 70.5 % (40.0-76.0); PLATELET 285 x1000/uL (130-400); RED BLOOD CELL COUNT 4.67 mill/uL (4.2-5.4); RED CELL DISTRIBUTION WIDTH 13.6 % (11.6-14.6)
[2020-03-31 03:36] LABS: LDL CHOLESTEROL 161 mg/dL (5-100)
[2020-03-31 03:37] LABS: HDL CHOLESTEROL 43 mg/dL (40-59)
[2020-03-31] MEDS ORDERED: ASPIRIN 300MG SUPP PR NR (05:30)
[2020-03-31] MEDS ORDERED: LABETALOL 5MG/ML SYR 20 MG/4 ML SYRINGE IV NR (05:30)
[2020-03-31] MEDS: BLOOD SUGAR DIAGNOSTIC STRIP TEST SCH ×3 (06:30→22:48)
[2020-03-31] MEDS: INSULIN LISPRO 100 UNITS/ML SUBCUT SCH ×3 (07:06→18:22)
[2020-03-31] MEDS: LABETALOL HCL 200MG TABLET NG SCH (09:00)
[2020-03-31] MEDS: NICARDIPINE 50 MG in SODIUM CHLORIDE 0.9% 230 ML IV PRN (10:30)
[2020-03-31] MEDS ORDERED: AZITHROMYCIN 500 MG in DEXT 5% WATER 250 ML IV SCH (11:00)
[2020-03-31] MEDS ORDERED: CEFTRIAXONE 1,000 MG in DEXTROSE 5% WATER 50 ML IV SCH (12:00)
[2020-03-31] MEDS ORDERED: AMLODIPINE 5MG TABLET PO SCH (12:30)
[2020-03-31] MEDS ORDERED: CEFTRIAXONE SODIUM 1 G/VIAL ONE (14:48)
[2020-03-31 23:27] LABS: BG BASE EXCESS 3.7 mmol/L (-2.0-2.0); BG CARBOXYHEMOGLOBIN 1.6 % (0.5-1.5); BG DEOXYHEMOGLOBIN 1.7 % (0.0-5.0); BG FRACTION INSPIRED OXYGEN 44; BG HCO3 ACT 28.3 mmol/L (22.0-26.0); BG METHEMOGLOBIN 0.2 % (0.0-1.5); BG OXYGEN SATURATION 98.3 % (92.0-98.5); BG OXYHEMOGLOBIN 96.5 % (94.0-97.0); BG PCO2 42.3 mmHg (35.0-45.0); BG PH 7.443 (7.350-7.450); BG PO2 112.4 mmHg (75.0-100.0); BG SAMPLE SITE RIGHT RADIAL; BG TOTAL HEMOGLOBIN 14.9 g/dL (12.0-18.0); BG VENT MODE NASAL CANNULA
[2020-04-01] VITALS (37 sets, daily range): BP systolic 86–179; BP diastolic 48–94
[2020-04-01 00:34] LABS: T4 FREE 1.02 ng/dL (0.76-1.46)
[2020-04-01 04:09] LABS: CHLORIDE 106 mEq/L (98-107)
[2020-04-01 04:12] LABS: BASOPHILS % 1.3 % (0.0-2.0); EOSINOPHILS % 0.5 % (0.0-5.0); HEMOGLOBIN. 13.8 g/dL (12.0-16.0); LYMPHOCYTES % 18.7 % (20.0-50.0); MEAN CORPUSCULAR HEMOGLOBIN 31.3 pg (28.0-32.0); MEAN CORPUSCULAR VOLUME 93.1 fL (81.0-99.0); MEAN PLATELET VOLUME 8.7 fl (7.4-10.4); MONOCYTES % 6.4 % (2.0-8.0); NEUTROPHILS % 73.1 % (40.0-76.0); PLATELET 255 x1000/uL (130-400); RED BLOOD CELL COUNT 4.41 mill/uL (4.2-5.4); RED CELL DISTRIBUTION WIDTH 13.7 % (11.6-14.6)
[2020-04-01] MEDS: BLOOD SUGAR DIAGNOSTIC STRIP TEST SCH ×5 (07:24→23:40)
[2020-04-01] MEDS: NICARDIPINE 50 MG in SODIUM CHLORIDE 0.9% 230 ML IV PRN (07:55)
[2020-04-01] MEDS: INSULIN LISPRO 100 UNITS/ML SUBCUT SCH ×5 (08:20→23:41)
[2020-04-01] MEDS: SODIUM CHLORIDE 0.9% 1,000 ML IV SCH ×2 (09:06→19:48)
[2020-04-01] MEDS ORDERED: LORAZEPAM 2MG/ML CPJ IV NR (11:00)
[2020-04-01] MEDS: CEFTRIAXONE 1,000 MG in DEXTROSE 5% WATER 50 ML IV SCH (12:48)
[2020-04-01] MEDS: AZITHROMYCIN 500 MG in DEXT 5% WATER 250 ML IV SCH (13:28)
[2020-04-01] MEDS: LABETALOL HCL 200MG TABLET NG SCH ×2 (13:28→21:00)
[2020-04-01] MEDS ORDERED: CLONIDINE 0.2MG TABLET PO SCH (14:00)
[2020-04-01] MEDS ORDERED: ENALAPRIL 2.5MG/2ML VIAL 2ML IV PRN (16:15)
[2020-04-02] VITALS (19 sets, daily range): BP systolic 130–171; BP diastolic 37–96
[2020-04-02] MEDS: SODIUM CHLORIDE 0.9% 1,000 ML IV SCH ×2 (03:21→12:59)
[2020-04-02 05:45] LABS: BASOPHILS % 0.7 % (0.0-2.0); EOSINOPHILS % 2.2 % (0.0-5.0); HEMATOCRIT. 37.2 % (36.0-48.0); HEMOGLOBIN. 12.4 g/dL (12.0-16.0); LYMPHOCYTES % 26.8 % (20.0-50.0); MEAN CORPUSCULAR HEMOGLOBIN 31.5 pg (28.0-32.0); MEAN CORPUSCULAR VOLUME 94.5 fL (81.0-99.0); MEAN PLATELET VOLUME 8.6 fl (7.4-10.4); MONOCYTES % 7.2 % (2.0-8.0); NEUTROPHILS % 63.1 % (40.0-76.0); PLATELET 245 x1000/uL (130-400); RED BLOOD CELL COUNT 3.94 mill/uL (4.2-5.4); RED CELL DISTRIBUTION WIDTH 13.5 % (11.6-14.6)
[2020-04-02] MEDS: BLOOD SUGAR DIAGNOSTIC STRIP TEST SCH ×3 (05:48→17:31)
[2020-04-02] MEDS: INSULIN LISPRO 100 UNITS/ML SUBCUT SCH ×3 (06:01→17:39)
[2020-04-02 06:07] LABS: CHLORIDE 110 mEq/L (98-107)
[2020-04-02] MEDS: LABETALOL HCL 200MG TABLET NG SCH (08:10)
[2020-04-02] MEDS: CEFTRIAXONE 1,000 MG in DEXTROSE 5% WATER 50 ML IV SCH (12:48)
[2020-04-02] MEDS: AZITHROMYCIN 500 MG in DEXT 5% WATER 250 ML IV SCH (12:48)
== END 2020-04-02 18:00 | disposition short-term general hospital (02) | DRG 720 ==
LOC: ER 10:13 → MICUSO 13:16 → ENRESERV 04-01 07:08 → CVICU 04-01 07:15
PROVIDERS: ADMIT Internal Medicine; ATTEND Internal Medicine
DX: A41.9 Sepsis, unspecified organism (principal); E66.01 Morbid (severe) obesity due to excess calories; I16.1 Hypertensive emergency; I63.9 Cerebral infarction, unspecified; G93.41 Metabolic encephalopathy; E78.5 Hyperlipidemia, unspecified; I10 Essential (primary) hypertension; L84 Corns and callosities; L85.3 Xerosis cutis; N39.0 Urinary tract infection, site not specified; S91.312A Laceration without foreign body, left foot, initial encounter; J15.9 Unspecified bacterial pneumonia; E11.51 Type 2 diabetes mellitus with diabetic peripheral angiopathy without gangrene; X58.XXXA Exposure to other specified factors, initial encounter; Y93.89 Activity, other specified; Y92.89 Other specified places as the place of occurrence of the external cause; Y99.8 Other external cause status; Z03.818 Encounter for observation for suspected exposure to other biological agents ruled out; Z78.1 Physical restraint status; Z79.4 Long term (current) use of insulin; Z87.891 Personal history of nicotine dependence; Z88.8 Allergy status to other drugs, medicaments and biological substances; Z79.899 Other long term (current) drug therapy; Z68.42 Body mass index [BMI] 45.0-49.9, adult; E43 Unspecified severe protein-calorie malnutrition
CPT/HCPCS: 36415; 36600; 70551; 71045; 80048; 80053; 80061; 80305; 80320; 81003; 82010; 82375; 82805; 82962; 83036; 83605; 83735; 83880; 83930; 84100; 84439; 84443; 84484; 85025; 87635; 92610; 93005; 93306; 96365; 97162; 97530; 99285; J0360; J0456; J0696; J1200; J1815; J2060; J3490; J7030; J7050; J7060; G0480